=== PATIENT | male | born 1975 ===

== ENCOUNTER 2017-12-30 23:41 | Inpatient (IN) | payer OTHER ==
[2017-12-30 23:42] VITALS: BMI 34.0
--- NOTE | 2017-12-31 01:53 | ED PDOC ---
Arrival/HPI - General Historian: Patient - History of Present Illness Time/Duration: Other (today) Symptom Onset: Gradual Symptom Course: Worsening <Vaishali Esparza - Last Filed: 12/31/17 02:15> <Teofilo Owens - Last Filed: 12/31/17 03:14> <Grupo Styles - Last Filed: 12/31/17 09:51> - General Chief Complaint: Psychiatric Evaluation Time Seen by Provider: 12/31/17 00:41 - History of Present Illness Narrative History of Present Illness (Text): 12/31/17 01:50 42-year-old male with a history of schizophrenia presents today with suicidal ideation. Patient states he is feeling depressed and wants to hurt himself. He denies headache dizziness or weakness no chest pain or shortness of breath. Denies fevers or chills. Denies URI symptoms. Denies abdominal pain. No nausea or vomiting. No other complaints. Patient states he ran out of his medications a few months ago and has not been taking them. (Vaishali Esparza) Past Medical History - Provider Review Nursing Documentation Reviewed: Yes - Travel History Have you recently traveled outside [place] w/in the past 3 mons?: No - Infectious Disease Hx of Infectious Diseases: None - Tetanus Immunization Tetanus Immunization: Unknown - Cardiac Hx Cardiac Disorders: No Hx Hypertension: No - Pulmonary Hx Respiratory Disorders: No Hx Tuberculosis: No - Neurological Hx Neurological Disorder: No HX Cerebrovascular Accident: No Hx Seizures: No - HEENT Hx HEENT Disorder: No - Renal Hx Renal Disorder: No - Endocrine/Metabolic Hx Endocrine Disorders: Yes (DM) Hx Diabetes Mellitus Type 2: Yes - Hematological/Oncological Hx Blood Disorders: No Hx Cancer: No - Integumentary Hx Dermatological Disorder: No - Musculoskeletal/Rheumatological Hx Arthritis: No Hx Fractures: No Hx Osteoporosis: No - Gastrointestinal Hx Gastrointestinal Disorders: No Hx Crohn's Disease: No Hx Diverticulitis: No Hx Gall Bladder Disease: No Hx Pancreatitis: No - Genitourinary/Gynecological Hx Genitourinary Disorders: No Hx Sexually Transmitted Diseases: No - Psychiatric Hx Anxiety: Yes Hx Bipolar Disorder: Yes Hx Depression: Yes Hx Schizophrenia: Yes Hx Substance Use: No - Past Surgical History Past Surgical History: No Previous - Surgical History Hx Appendectomy: Yes Hx Cholecystectomy: No Hx Coronary Stent: No - Anesthesia Hx Anesthesia: Yes Hx Anesthesia Reactions: No Hx Malignant Hyperthermia: No - Suicidal Assessment Feels Threatened In Home Enviroment: No <Vaishali Esparza - Last Filed: 12/31/17 02:15> Family/Social History - Physician Review Nursing Documentation Reviewed: Yes Family/Social History: Unknown Family HX Smoking Status: Heavy Smoker > 10 Cigarettes Daily Hx Alcohol Use: Yes (1-2 etoh in a week) Hx Substance Use: No Hx Substance Use Treatment: No <Vaishali Esparza - Last Filed: 12/31/17 02:15> Allergies/Home Meds <Vaishali Esparza - Last Filed: 12/31/17 02:15> <Teofilo Owens - Last Filed: 12/31/17 03:14> <Grupo Styles - Last Filed: 12/31/17 09:51> Allergies/Adverse Reactions: Allergies divalproex sodium [From Depakote] Allergy (Verified 12/31/17 00:25) RASH seafood Allergy (Uncoded 12/31/17 00:25) RASH Review of Systems - Review of Systems Constitutional: absent: Fatigue, Fevers Respiratory: absent: SOB, Cough Cardiovascular: absent: Chest Pain, Palpitations Gastrointestinal: absent: Abdominal Pain, Nausea, Vomiting Genitourinary Male: absent: Dysuria Musculoskeletal: absent: Arthralgias Skin: absent: Rash, Pruritis Neurological: absent: Headache, Dizziness Psychiatric: Depression, Suicidal Ideation. absent: Anxiety <Vaishali Esparza - Last Filed: 12/31/17 02:15> Physical Exam Vital Signs Reviewed: Yes Temperature: Afebrile Blood Pressure: Normal Pulse: Regular Respiratory Rate: Normal Appearance: Positive for: Well-Appearing, Non-Toxic, Comfortable Pain Distress: None Mental Status: Positive for: Alert and Oriented X 3 - Systems Exam Head: Present: Atraumatic Mouth: Present: Moist Mucous Membranes Neck: Present: Normal Range of Motion Respiratory/Chest: Present: Clear to Auscultation Cardiovascular: Present: Regular Rate and Rhythm Abdomen: No: Tenderness, Distention, Rebound, Guarding Back: Present: Normal Inspection Upper Extremity: Present: Normal ROM Lower Extremity: Present: Normal ROM Neurological: Present: GCS=15, Speech Normal Skin: Present: Warm, Dry Psychiatric: Present: Alert, Oriented x 3, Depressed Mood, Suicidal Ideation <Vaishali Esparza - Last Filed: 12/31/17 02:15> Vital Signs Temp Pulse Resp BP Pulse Ox 12/31/17 07:00 97.9 F 80 16 138/70 99 12/31/17 05:00 97.9 F 85 18 129/69 97 12/31/17 03:00 98.7 F 80 18 130/70 98 12/31/17 01:43 98.6 F 79 15 119/70 98 12/31/17 00:27 98.4 F 97 H 20 127/76 99 12/30/17 23:43 98.5 F 89 15 127/80 99 Medical Decision Making <Vaishali Esparza - Last Filed: 12/31/17 02:15> <Teofilo Owens - Last Filed: 12/31/17 03:14> <Grupo Styles - Last Filed: 12/31/17 09:51> ED Course and Treatment: 12/31/17 01:52 Patient is nontoxic well-appearing in no distress vital signs are stable. CBC WNL CMP glucose 266 Tylenol WNL Salicylate WNL Alcohol level WNL Urine drug screen wnl UA; wnl cxr: wnl ekg sinus rhythm at 93 bpm normal axis, early repolarization. pt without chest pain or shortness of breath. pt is medically cleared for PES evaluation 12/31/17 02:[address] case [address] out to [address] owens pending PES evaluation, re-eval and disposition. (Vaishali Esparza) 12/31/17 02:38: Case endorsed to me by AWILDA Esparza. Pending PES evaluation, will reassess and disposition. 12/31/17 03:14: Patient was evaluated by PES. Dr. Christopher will evaluate patient in the morning. (Teofilo Owens) - Lab Interpretations Lab Results: 12/31/17 00:40 12/31/17 00:40 Lab Results 12/31/17 00:40: Alcohol, Quantitative < 10 12/31/17 00:40: Salicylates < 1 L, Acetaminophen < 10.0 L 12/31/17 00:40: Urine Opiates Screen Negative, Urine Methadone Screen Negative, Ur Barbiturates Screen Negative, Ur Phencyclidine Scrn Negative, Ur Amphetamines Screen Negative, U Benzodiazepines Scrn Negative, U Oth Cocaine Metabols Negative, U Cannabinoids Screen Negative 12/31/17 00:40: Sodium 137, Potassium 3.9, Chloride 101, Carbon Dioxide 24, Anion Gap 16, BUN 10, Creatinine 0.7 L, Est GFR ( Amer) > 60, Est GFR ( Non-Af Amer) > 60, Random Glucose 266 H, Calcium 9.6, Total Bilirubin 0.2, AST 16 L D, ALT 33, Alkaline Phosphatase 88, Total Protein 6.7, Albumin 3.9, Globulin 2.8, Albumin/Globulin Ratio 1.4 12/31/17 00:40: Urine Color Yellow, Urine Appearance Sl cloudy, Urine pH 6.0, Ur Specific [place] 1.025, Urine Protein Negative, Urine Glucose (UA) >=1000, Urine Ketones Negative, Urine Blood Negative, Urine Nitrate Negative, Urine Bilirubin Negative, Urine Urobilinogen 0.2, Ur Leukocyte Esterase Negative 12/31/17 00:40: WBC 6.6, RBC 4.65, Hgb 13.7 L, Hct 40.0 L, MCV 86.0, MCH 29.5, MCHC 34.3, RDW 12.8, Plt Count 226, MPV 10.7, Gran % 43.7 L, Lymph % (Auto) 47.6 H, [place] % (Auto) 6.1 H, Eos % (Auto) 2.4, Baso % (Auto) 0.2, Gran # 2.86, Lymph # (Auto) 3.1, [place] # (Auto) 0.4, Eos # (Auto) 0.2, Baso # (Auto) 0.01 - RAD Interpretation Radiology Orders: 12/31/17 00:41 CHEST PORTABLE [RAD] Stat Disposition/Present on Arrival - Present on Arrival Any Indicators Present on Arrival: No History of DVT/PE: No History of Uncontrolled Diabetes: No Urinary Catheter: No History of Decub. Ulcer: No History Surgical Site Infection Following: None <Vaishali Esparza - Last Filed: 12/31/17 02:15> <Teofilo Owens - Last Filed: 12/31/17 03:14> - Disposition Have Diagnosis and Disposition been Completed?: Yes Disposition Time: 10:00 Patient Plan: Admission <Grupo Styles - Last Filed: 12/31/17 09:51> - Disposition Diagnosis: Schizoaffective disorder Disposition: HOSPITALIZED Condition: STABLE Forms: [employer] (Kinyarwanda)
[2017-12-31 01:58] LABS: BASO # 0.01 K/mm3 (0.0-2.0); BASO % 0.2 % (0.0-3.0); EOS # 0.2 (0.0-0.7); EOS % 2.4 % (1.5-5.0); GRAN # 2.86 (1.4-6.5); GRAN % 43.7 % (50.0-68.0); HEMOGLOBIN 13.7 g/dL (14.0-18.0); LYMPH # 3.1 (1.2-3.4); LYMPH % 47.6 % (22.0-35.0); MEAN CORPUSCULAR HEMOGLOBIN 29.5 pg (25.0-35.0); MEAN CORPUSCULAR HGB CONC 34.3 g/dl (31.0-37.0); MEAN PLATELET VOLUME 10.7 fl (7.0-11.0); MONO # 0.4 (0.1-0.6); MONO % 6.1 % (1.0-6.0); RBC 4.65 10^6/uL (3.5-6.1); RED CELL DISTRIBUTION WIDTH 12.8 % (11.5-14.5); WHITE BLOOD COUNT 6.6 10^3/ul (4.5-11.0)
[2017-12-31 01:59] LABS: URINE BILIRUBIN NEGATIVE (NEGATIVE); URINE BLOOD NEGATIVE (NEGATIVE); URINE GLUCOSE (UA) >=1000 mg/dL (NEGATIVE); URINE LEUKOCYTE ESTERASE NEGATIVE Leu/uL (NEGATIVE); URINE NITRATE NEGATIVE (NEGATIVE); URINE PROTEIN NEGATIVE mg/dL (<30 mg/dL); URINE UROBILINOGEN 0.2 E.U./dL (<1 E.U./dL)
[2017-12-31 02:04] LABS: URINE APPEARANCE SL CLOUDY (CLEAR); URINE COLOR YELLOW (YELLOW)
[2017-12-31 02:07] LABS: ALB/GLOB RATIO 1.4 (1.1-1.8); ALBUMIN 3.9 g/dL (3.0-4.8); ALT/SGPT 33 U/L (7-56); AST/SGOT 16 U/L (17-59); BLOOD UREA NITROGEN 10 mg/dL (7-21); CALCIUM 9.6 mg/dL (8.4-10.5); GFR AFRICAN-AMERICAN > 60; GFR NON-AFRICAN AMERICAN > 60
[2017-12-31 02:08] LABS: ACETAMINOPHEN < 10.0 ug/ml (10.0-20.0); SALICYLATE < 1 mg/dL (2.0-20.0)
[2017-12-31 02:23] LABS: BARBITURATES, UR NEGATIVE (NEGATIVE); BENZODIAZEPINES, UR NEGATIVE (NEGATIVE); OPIATES, UR NEGATIVE (NEGATIVE); PHENCYCLIDINE, UR NEGATIVE (NEGATIVE)
--- NOTE | 2017-12-31 09:40 | RAD ---
HISTORY: pes eval COMPARISON: No prior. FINDINGS: LUNGS: The lungs are well inflated and clear. PLEURA: No significant pleural effusion identified, no pneumothorax apparent. CARDIOVASCULAR: Normal. OSSEOUS STRUCTURES: No significant abnormalities. VISUALIZED UPPER ABDOMEN: Normal. OTHER FINDINGS: None. IMPRESSION: No active pulmonary disease.
--- NOTE | 2017-12-31 10:28 | CARD ---
APPROVED REPORT EKG Measurement Heart [id number] <Conclusion> Normal sinus rhythm ST elevation, consider early repolarization, pericarditis, or injury ST elevations were seen on prior ECG but the pattern is somewhat different now. Suggest clinical correlation.
[2017-12-31 10:42] VITALS: O2SAT 100
[2017-12-31] MEDS ORDERED: DiphenhydrAMINE 50 mg/ml Inj IM PRN (11:52)
[2017-12-31 12:46] VITALS: RESP 20
--- NOTE | 2017-12-31 14:57 | PCM.BM ---
<Yulissa Gallagher - Last Filed: 12/31/17 14:54> Treatment Plan Problems - Problems identified on initial assessmt high risk suicide Date Initiated: 12/31/17 Time Initiated: 14:56 Assessment reference: NA Status: Active ineffective coipng Date Initiated: 12/31/17 Time Initiated: 14:57 Assessment reference: NA Status: Active hopelessness.helplessness Date Initiated: 12/31/17 Time Initiated: 14:58 Assessment reference: NA Status: Active medication nonadherence Date Initiated: 12/31/17 Time Initiated: 14:59 Assessment reference: NA Status: Active self care deficit Date Initiated: 12/31/17 Time Initiated: 15:00 Assessment reference: NA Status: Active altered sleep pattern Date Initiated: 12/31/17 Time Initiated: 15:02 Assessment reference: NA Status: Active Treatment assets and liabiliti Patient Assests: cooperative, self-reliant, ADL independent, physically healthy , negotiates basic needs Patient Liabilities: live alone, poor support system - Milieu Protocol Maintain good personal hygiene: every shift Encourage regular showers, every shift Remind patient to perform daily oral care, every shift Assist patient to perform ADL's Conduct patient checks and document Observation sheet: Q15 minutes Maintain personal safety: every shift Educate patient to report safety concerns to staff, every shift Monitor environment for contraband/sharps Medication safety: Monitor for expected outcome, potential side effects: every shift, Assess barriers to learning: every shift, Assess readiness for medication education: every shift Family Contact - Goals for Treatment Patient goals for treatment: To get back on his medication Discharge/Continuing Care - Education Needs Education Needs: Patient Medication, Patient Diagnosis/Disease Process, Patient Coping Skills, Patient Community resources, Patient Personal Hygiene/Grooming - Discharge Discharge Criteria: Tolerates medication w/o severe side effects, Free of Suicidal thoughts, Normal sleep pattern, Ability to care for self <Isabela Christopher - Last Filed: 12/31/17 16:29> - Diagnosis (1) Schizoaffective disorder Status: Acute Interventions: 12/31/17 16:29 Psychoeducation/psychotherapy Psychopharmacology/adjustment of medications as needed/ monitoring possible side effects Evaluate pt on daily basis Compliance with medications and follow up appointments Long acting medication if pt is noncompliant with pill form Suicide and homicide risk assessment and prevention, coping strategies, safety plan Relapse prevention Reduction of symptoms Improve functional status Possible assertive community treatment Cognitive behavioral therapy Family involvement Possible social skill training as outpatient <Teri Amor - Last Filed: 01/03/18 16:16> Family Contact Family involvement: Patient does not wish Family/SO involvement <Josette Marx - Last Filed: 01/03/18 16:23>
[2017-12-31] MEDS: Insulin Reg-LOW-Coverage SC SCH ×2 (17:37→21:40)
--- NOTE | 2017-12-31 22:09 | CON ---
DATE: HISTORY OF PRESENT ILLNESS: The patient is 42-year-old male with reported history of schizoaffective disorder, bipolar type. Patient has multiple admissions to the psychiatric inpatient unit including [facility]. Patient was discharged from [facility] on 12/25 against medical advice. Patient came back to [place] on 12/27 and was discharged again and patient came here for evaluation of suicidal ideation with a plan to walk into the traffic. As per report, patient was wandering in the community and trying to walk into the traffic. Patient was seen and examined in the emergency room. Patient presented to be disheveled, very poor personal hygiene. Patient reported that he feels depressed, expressed thoughts of killing himself with a plan to walk into the traffic, which is consistent with the history. Patient presented with a flat affect and monotonic speech as well as poverty of speech and thoughts. Patient denied hearing voices, denied seeing things, denied paranoid ideation, but patient appears to be guarded. Patient reported that he has more than five psychiatric admissions. Patient said that medications that helped him in that are haloperidol and Cogentin. PATIENT IS ALLERGIC TO DEPAKOTE. Patient said that he would have seizure-like activity if he will take Depakote. Patient reported that he has very poor support in the community. He has nobody and he is homeless and he does not work, but collects social security disability for mental illness. VITAL SIGNS: Reviewed. Temperature 97.9, blood pressure 138/70, respirations 16, oxygen saturation 99. MEDICATIONS: Reviewed. LABORATORY DATA: Reviewed. Toxicology negative for any substances. Hemoglobin and hematocrit 13.7 and 40 respectively. Chemistry reviewed. Creatinine is 0.7, which is low. Patient also reports that he has diabetes, but he does not take any medication. Patient reported that he is not going to pharmacy and he is noncompliant with medications. MENTAL STATUS EXAM: Patient presented to be sleepy, arousable, but patient was falling asleep during the interview. Personal hygiene is poor. Speech was monotonic, low volume, underproductive, poverty of speech. Mood described, "I am not doing so well." Affect was flat. Thought process concrete. Thought content, patient denied visual, auditory, tactile hallucinations, but patient presented to be guarded and paranoid. Insight and judgment seems to be limited. Impulses are unpredictable. IMPRESSION: As per history, schizoaffective disorder, bipolar type. PLAN: This scientific writer offered patient admission to the psychiatric inpatient unit. Patient accepted that offer. Patient is willing to take Haldol as well as Cogentin. Risks, benefits, and alternative to medications were discussed with the patient. Patient will be seen by medical team for diabetes, low algorithm coverage will be started. Patient contracted for safety. There is no need to be on one-to-one. Patient will be admitted to the psychiatric inpatient unit. Should you have any questions, give me a call back. Thank you very much for letting me participate in the care of your patient. Isabela Christopher MD MTDD
[2018-01-01] MEDS: Insulin Reg-LOW-Coverage SC SCH ×4 (08:30→21:33)
--- NOTE | 2018-01-01 11:35 | PCM.PSYCH ---
Initial Psychiatric Evaluation - Initial Psychiatric Evaluation Type of Admission: Voluntary Chief Complaint (in patient's own words): depressed History of Present Illness and Precipitating Events: Patient is a single 42-year-old -[place] male with a reported history of Schizoaffective disorder bipolar type, r/o Mild MR (per prior records) multiple admissions- most recently discharged AMA from [facility] on December 25, 2017, then presented to [place] on December 27, 2017 where he presented with SI w/o plan and discharged. Patient then came to [facility] ER on complaining of suicidal thoughts with the plan to walk into traffic. Patient was interviewed by Dr. Christopher in the ER yesterday. Her report indicates that he was wandering in the community trying to walk into traffic. Patient reported feeling very depressed due to unemployment, homelessness and poor community support. I reviewed recent notes and met with patient at bedside. He is alert and well- oriented to month year, location and circumstances. Focus is fair and affect is constricted. Patient reports continued depression and endorses symptoms of low motivation, low-energy, poor sleep, hopelessness and helplessness. Presently he denies having any suicidal thoughts and feel safe on the unit. Regarding major stressors, he reports that he has been homeless since 2007 and lives in shelters. Patient is unemployed. He reports that he has also been grieving the of his 27-year-old nephew (also named Preet) who of an asthma attack approximately a year ago. This account was confirmed by reviewing [facility] 02/2017 hospitalization records. Patient denies any perceptual disturbances and does not appear to be responding to internal stimuli though this does appear internally preoccupied. He is tolerating his current medications and denies any side effects or any new discomfort or pain. Thus far he has been in good behavioral control on the unit. PSYCHIATRIC HISTORY Most recently discharged AMA from [facility] on December 23-December 25, 2017. Patient then presented to [place] on December 27, 2017 with SI w/o plan and discharged from the ER. Patient was admitted to [facility] in February 2017 s/p the sudden of his nephew in January 2017 secondary to asthma attack. Patient was discharged on Risperdal 2 mg HS, Zoloft 50 mg daily. SOCIAL HISTORY Patient was born and raised in [place]. He is single. Never been and doesnt have any children. Patient reports that hes been homeless since 2007 and has been living in shelters. Patient reports he graduated high school. He is unemployed and denies any legal issues. He denies any drug or alcohol issues and smokes a few cigarettes every other day. Patient was counseled on the morbidity and mortality risks of continue tobacco use and offered a nicotine patch which he refused stating "I will never quit". Current Medications: Active Medications Generic Name Dose Route Start Last Admin Trade Name Freq PRN Reason Stop Dose Admin Acetaminophen 650 mg 12/31/17 11:53 Tylenol 325mg Tab PO Q6H PRN Pain, moderate (4-7) Benztropine Mesylate 1 mg 12/31/17 13:00 12/31/17 17:38 Cogentin PO 1 mg TID BILL Administration Diphenhydramine HCl 50 mg 12/31/17 11:45 Benadryl PO Q6 PRN Agitation Diphenhydramine HCl 50 mg 12/31/17 11:52 Benadryl IM Q6H PRN Allergy symptoms Fluoxetine HCl 20 mg 12/31/17 11:45 12/31/17 17:43 Prozac PO 20 mg DAILY BLIL Administration Haloperidol 5 mg 12/31/17 13:00 12/31/17 17:38 Haldol PO 5 mg TID BILL Administration Protocol Haloperidol 5 mg 12/31/17 11:43 Haldol PO Q6 PRN Agitation Protocol Insulin Human Regular 0 units 12/31/17 16:30 12/31/17 21:40 Humulin R Low SC Not Given ACHS BILL Protocol Lorazepam 2 mg 12/31/17 11:47 Ativan PO Q6 PRN Anxiety Protocol Lorazepam 2 mg 12/31/17 11:50 Ativan IM Q6H PRN Anxiety Protocol Zolpidem Tartrate 5 mg 12/31/17 11:42 Ambien PO HS PRN Insomnia Protocol Past Psychiatric History - Past Psychiatric History Pertinent Medical Hx (Current Medical&Sleep Prob, Allergies): Allergies Allergy/AdvReac Type Severity Reaction Status Date / Time divalproex sodium Allergy RASH Verified 12/31/17 14:27 [From Depakote] seafood Allergy RASH Uncoded 12/31/17 14:27 No Known Home Med 01/01/18 DSM 5 DX - DSM 5 DSM 5 Diagnosis: Schizoaffective disorder bipolar type r/o Mild MR (per prior records) - Recommended/Plan of Treatment Treatment Recommendations and Plan of Treatment: * group, milieu and supportive tx * Prozac 20 mg po daily for depression * Haldol 5 mg po TID for mood control/agitation, Cogentin 1 mg po TID for EPS prophylaxis * Ambien 5 mg HS prn: insomnia * Awaiting medical consult * Vitals reviewed and noted below: 01/01/18 07:45 Temperature 98.1 F Pulse Rate 72 Respiratory 20 Rate Blood Pressure 110/75 ER LABS AND REPORTS 12/31/17 00:40: Alcohol, Quantitative < 10 12/31/17 00:40: Salicylates < 1 L, Acetaminophen < 10.0 L 12/31/17 00:40: Urine Opiates Screen Negative, Urine Methadone Screen Negative, Ur Barbiturates Screen Negative, Ur Phencyclidine Scrn Negative, Ur Amphetamines Screen Negative, U Benzodiazepines Scrn Negative, U Oth Cocaine Metabols Negative, U Cannabinoids Screen Negative 12/31/17 00:40: Sodium 137, Potassium 3.9, Chloride 101, Carbon Dioxide 24, Anion Gap 16, BUN 10, Creatinine 0.7 L, Est GFR ( Amer) > 60, Est GFR ( Non-Af Amer) > 60, Random Glucose 266 H, Calcium 9.6, Total Bilirubin 0.2, AST 16 L D, ALT 33, Alkaline Phosphatase 88, Total Protein 6.7, Albumin 3.9, Globulin 2.8, Albumin/Globulin Ratio 1.4 12/31/17 00:40: Urine Color Yellow, Urine Appearance Sl cloudy, Urine pH 6.0, Ur Specific [place] 1.025, Urine Protein Negative, Urine Glucose (UA) >=1000, Urine Ketones Negative, Urine Blood Negative, Urine Nitrate Negative, Urine Bilirubin Negative, Urine Urobilinogen 0.2, Ur Leukocyte Esterase Negative 12/31/17 00:40: WBC 6.6, RBC 4.65, Hgb 13.7 L, Hct 40.0 L, MCV 86.0, MCH 29.5, MCHC 34.3, RDW 12.8, Plt Count 226, MPV 10.7, Gran % 43.7 L, Lymph % (Auto) 47.6 H, [place] % (Auto) 6.1 H, Eos % (Auto) 2.4, Baso % (Auto) 0.2, Gran # 2.86, Lymph # (Auto) 3.1, [place] # (Auto) 0.4, Eos # (Auto) 0.2, Baso # (Auto) 0.01 CXR: wnl ekg sinus rhythm at 93 bpm normal axis, early repolarization. pt without chest pain or shortness of breath. - Smoking Cessation Smoking Cessation Initiated: No Reason for not providing: Patient refused
[2018-01-02] MEDS: Insulin Reg-LOW-Coverage SC SCH ×4 (08:04→22:44)
--- NOTE | 2018-01-02 11:41 | PCM.PYCHPN ---
Psychiatric Progress Note - Psychiatric Progress Note Patient seen today, length of contact: 25 min Patient Chief Complaint: better Problems Identified/Issues Discussed: History of Present Illness and Precipitating Events: Patient is a single 42-year-old -[place] male with a reported history of Schizoaffective disorder bipolar type, r/o Mild MR (per prior records) multiple admissions- most recently discharged AMA from [facility] on December 25, 2017, then presented to [facility] on December 27, 2017 where he presented with SI w/o plan and discharged. Patient then came to [facility] on complaining of suicidal thoughts with the plan to walk into traffic. Patient was interviewed by Dr. Christopher in the ER yesterday. Her report indicates that he was wandering in the community trying to walk into traffic. Patient reported feeling very depressed due to unemployment, homelessness and poor community support. I reviewed recent notes and met with patient at bedside. He is alert and well- oriented to month year, location and circumstances. Focus is fair and affect is constricted. Patient reports continued depression and endorses symptoms of low motivation, low-energy, poor sleep, hopelessness and helplessness. Presently he denies having any suicidal thoughts and feel safe on the unit. Regarding major stressors, he reports that he has been homeless since 2007 and lives in shelters. Patient is unemployed. He reports that he has also been grieving the of his 27-year-old nephew (also named Preet) who of an asthma attack approximately a year ago. This account was confirmed by reviewing [facility] 02/2017 hospitalization records. Patient denies any perceptual disturbances and does not appear to be responding to internal stimuli though this does appear internally preoccupied. He is tolerating his current medications and denies any side effects or any new discomfort or pain. Thus far he has been in good behavioral control on the unit. PSYCHIATRIC HISTORY Most recently discharged AMA from [facility] on December 23-December 25, 2017. Patient then presented to [facility] on December 27, 2017 with SI w/o plan and discharged from the ER. Patient was admitted to [facility] in February 2017 s/p the sudden of his nephew in January 2017 secondary to asthma attack. Patient was discharged on Risperdal 2 mg HS, Zoloft 50 mg daily. SOCIAL HISTORY Patient was born and raised in [place]. He is single. Never been and doesnt have any children. Patient reports that hes been homeless since 2007 and has been living in shelters. Patient reports he graduated high school. He is unemployed and denies any legal issues. He denies any drug or alcohol issues and smokes a few cigarettes every other day. Patient was counseled on the morbidity and mortality risks of continue tobacco use and offered a nicotine patch which he refused stating "I will never quit". PROGRESS NOTE I reviewed recent notes and met with patient in the hallway. He is alert and well-oriented to month year, location and circumstances. Presents as pleasant and friendly. Patient put in a 48 hour letter at 1:50 am this morning. He indicates that hes feeling better and just wants to return back to [facility]. Reports that he is tolerating his medications and denies any discomfort or pain. Slept well last night. Patient denies any perceptual disturbances and does not appear to be responding to internal stimuli. Affect is more reactive and he smiles more readily this morning. Thus far he has been in fair behavioral control. He has been intermittently visible and irritable on the unit. Apparently he became annoyed about not getting double portions of food and stated that he would sign out if not given sufficient food. Diagnostic Results: Schizoaffective disorder bipolar type r/o Mild MR (per prior records) Mental Status Examination - Cognitive Function Orientation: Person, Place, Situation Attention: WNL Concentration: WNL - Mood Mood: Depressed (better) - Affect Affect: Constricted (improved reactivity ) - Speech Speech: Appropriate - Formal Thought Process Formal Thought Process: No Impairment - Suicidal Ideation Suicidal Ideation: No - Homicidal Ideation Homicidal Ideation: No Goal/Treatment Plan - Goal/Treatment Plan Progress Toward Problem(s) and Goals/Treatment Plan: * group, milieu and supportive tx * Patient put in a 48 hour letter on 01/02/18 at 1:50 am. Thus far has been stable without evidence of overt disorganization or thoughts to harm self. * Prozac 20 mg po daily for depression * Haldol 5 mg po TID for mood control/agitation, Cogentin 1 mg po TID for EPS prophylaxis * Ambien 5 mg HS prn: insomnia * Awaiting medical consult * Vitals reviewed and noted below: 01/02/18 07:20 Temperature 98.4 F Pulse Rate 90 Respiratory 20 Rate Blood Pressure 103/71 ER LABS AND REPORTS 12/31/17 00:40: Alcohol, Quantitative < 10 12/31/17 00:40: Salicylates < 1 L, Acetaminophen < 10.0 L 12/31/17 00:40: Urine Opiates Screen Negative, Urine Methadone Screen Negative, Ur Barbiturates Screen Negative, Ur Phencyclidine Scrn Negative, Ur Amphetamines Screen Negative, U Benzodiazepines Scrn Negative, U Oth Cocaine Metabols Negative, U Cannabinoids Screen Negative 12/31/17 00:40: Sodium 137, Potassium 3.9, Chloride 101, Carbon Dioxide 24, Anion Gap 16, BUN 10, Creatinine 0.7 L, Est GFR ( Amer) > 60, Est GFR ( Non-Af Amer) > 60, Random Glucose 266 H, Calcium 9.6, Total Bilirubin 0.2, AST 16 L D, ALT 33, Alkaline Phosphatase 88, Total Protein 6.7, Albumin 3.9, Globulin 2.8, Albumin/Globulin Ratio 1.4 12/31/17 00:40: Urine Color Yellow, Urine Appearance Sl cloudy, Urine pH 6.0, Ur Specific Alice 1.025, Urine Protein Negative, Urine Glucose (UA) >=1000, Urine Ketones Negative, Urine Blood Negative, Urine Nitrate Negative, Urine Bilirubin Negative, Urine Urobilinogen 0.2, Ur Leukocyte Esterase Negative 12/31/17 00:40: WBC 6.6, RBC 4.65, Hgb 13.7 L, Hct 40.0 L, MCV 86.0, MCH 29.5, MCHC 34.3, RDW 12.8, Plt Count 226, MPV 10.7, Gran % 43.7 L, Lymph % (Auto) 47.6 H, [place] % (Auto) 6.1 H, Eos % (Auto) 2.4, Baso % (Auto) 0.2, Gran # 2.86, Lymph # (Auto) 3.1, [place] # (Auto) 0.4, Eos # (Auto) 0.2, Baso # (Auto) 0.01 CXR: wnl ekg sinus rhythm at 93 bpm normal axis, early repolarization. pt without chest pain or shortness of breath.
[2018-01-03] MEDS: Insulin Reg-LOW-Coverage SC SCH ×4 (08:03→22:10)
--- NOTE | 2018-01-03 10:02 | CON ---
DATE: 12/31/2017 CHIEF COMPLAINT: Diabetes mellitus. HISTORY OF PRESENT ILLNESS: Mr. Tomasz Green, a 42-year-old male with history of schizophrenia, came to the Emergency Room with suicidal ideation. The patient states that he is feeling depressed and he wanted to hurt himself. He denies headache, dizziness, weakness, chest pain or shortness of breath. No fever. No chills. No nausea, vomiting or diarrhea. No hematuria, no hematochezia. No swelling of the legs. The patient stated he ran out of his medication a few months ago and has not been taking them. PAST MEDICAL HISTORY: Diabetes mellitus type 2, anxiety, depression, schizophrenia, appendectomy. FAMILY HISTORY: Father and mother, noncontributory. HABITS: Smoking, heavy smoker more than 10 cigarettes a day. Alcohol denied ALLERGIES: DEPAKOTE, SEAFOOD. REVIEW OF SYSTEMS: The patient was seen and examined on the bedside, sleepy, arousable, feeling depressed. Otherwise, no fatigue, no fever, no shortness of breath, no coughing, no chest pain, no palpitation, no abdominal pain. No nausea, vomiting, or diarrhea. No dysuria, no dysarthria. No rash, pruritus, headache or dizziness but having suicidal ideation. PHYSICAL EXAMINATION VITAL SIGNS: Temperature 97.9, pulse 80, respiratory rate 16. blood pressure 130/70, and pulse oximetry 99. HEENT: Head is normocephalic, atraumatic. Eyes PERRLA. Extraocular muscles are intact. Conjunctivae clear. Nose is patent. Mucous membrane moist. NECK: Supple. No carotid bruit. No JVD or thyromegaly. CHEST: Bilaterally symmetrical. HEART: S1 and S2 positive. LUNGS: Clear to auscultation. ABDOMEN: Soft. Bowel sounds present. No organomegaly. EXTREMITIES: No edema. No cyanosis. NEUROLOGIC: Patient is awake and alert. Moving all four extremities. No focal deficits. LABORATORY DATA: White blood cell is 6.6, hemoglobin 13.7, hematocrit 40.0 and platelets 226,000. Sodium 137, potassium 3.9, BUN 10, creatinine 0.7 and glucose 266. ASSESSMENT AND PLAN: Mr. Tomasz Green Jr., 42-year-old male with anemia, hyperglycemia, has schizoaffective disorder, admitted for suicidal ideation, depression, anxiety. Discussion done with Dr. Isabela Christopher, put the patient on sliding scale with repeat labs. Discussion done with the patient also. Urged to quit smoking. Urged to quit drinking. Gastrointestinal and deep venous thrombosis prophylaxis. We will follow. Fabiola Cross MD MTDCharlie
--- NOTE | 2018-01-03 11:24 | CP.PCM.CON ---
<Jak Lynn - Last Filed: 01/03/18 11:17> History of Present Illness - History of Present Illness History of Present Illness: IM Consult Note for Hospitalist Service Consulted for medical management This is a 42 yo AA M with PMH of Non-insulin dependant diabetes, prior appendectomy, and schizophrenia who presented to [facility] with depression/suicidal ideation. As per ED note, patient had reported being off his psych medications for months due to running out and not being able to afford more. Patient is noted to be homeless, but collecting social security disability. Today, patient ambulating around psych unit without issue. No acute complaints when seen and examined in his room. Denies chest pain, shortness of breath, nausea, emesis, dysuria, hematuria, constipation, diarrhea, focal weakness, or syncope/ near-syncope. Denies current SI, HI, auditory or visual hallucinations. Reports previously controlled on Metformin 1000mg BID for his diabetes, never on insulin, and does not want to be on insulin. As per Psych staff, he has been refusing his sliding scale insulin coverage. Blood glucose range for last 24 hours is 172-215. Denies polyuria, polydipsia, persistent thirst, or generalized malaise/weakness. All other ROS in 12-system review are negative. PMH: as above PSH: appendectomy FHx: DM in both parents SHx: admits 1/4 ppd cigarettes since age 21 (~5-6 pack years), inconsistent EtOH but never binging or daily, denies illicits/IVDA PMD: None Review of Systems - Review of Systems All systems: reviewed and no additional remarkable complaints except (as per HPI ) Past Patient History - Infectious Disease Hx of Infectious Diseases: None - Tetanus Immunizations Tetanus Immunization: Unknown - Past Social History Smoking Status: Heavy Smoker > 10 Cigarettes Daily - CARDIAC Hx Cardiac Disorders: No Hx Hypertension: No - PULMONARY Hx Respiratory Disorders: No Hx Tuberculosis: No - NEUROLOGICAL Hx Neurological Disorder: No HX Cerebrovascular Accident: No Hx Seizures: No - HEENT Hx HEENT Problems: No - RENAL Hx Chronic Kidney Disease: No - ENDOCRINE/METABOLIC Hx Endocrine Disorders: Yes (DM) Hx Diabetes Mellitus Type 2: Yes - HEMATOLOGICAL/ONCOLOGICAL Hx Blood Disorders: No Hx Cancer: No - INTEGUMENTARY Hx Dermatological Problems: No - MUSCULOSKELETAL/RHEUMATOLOGICAL Hx Arthritis: No Hx Fractures: No Hx Osteoporosis: No - GASTROINTESTINAL Hx Gastrointestinal Disorders: No Hx Crohn's Disease: No Hx Diverticulitis: No Hx Gall Bladder Disease: No Hx Pancreatitis: No - GENITOURINARY/GYNECOLOGICAL Hx Genitourinary Disorders: No Hx Sexually Transmitted Disorders: No - PSYCHIATRIC Hx Substance Use: No - SURGICAL HISTORY Hx Appendectomy: Yes Hx Cholecystectomy: No Hx Coronary Stent: No - ANESTHESIA Hx Anesthesia: Yes Hx Anesthesia Reactions: No Hx Malignant Hyperthermia: No Meds Allergies/Adverse Reactions: Allergies Allergy/AdvReac Type Severity Reaction Status Date / Time divalproex sodium Allergy RASH Verified 12/31/17 14:27 [From Depakote] seafood Allergy RASH Uncoded 12/31/17 14:27 - Medications Medications: Current Medications Acetaminophen (Tylenol 325mg Tab) 650 mg PO Q6H PRN PRN Reason: Pain, moderate (4-7) Benztropine Mesylate (Cogentin) 1 mg PO TID [facility] Last Admin: 01/03/18 08:03 Dose: 1 mg Diphenhydramine HCl (Benadryl) 50 mg PO Q6 PRN PRN Reason: Agitation Diphenhydramine HCl (Benadryl) 50 mg IM Q6H PRN PRN Reason: Allergy symptoms Fluoxetine HCl (Prozac) 20 mg PO DAILY [facility] Last Admin: 01/03/18 08:04 Dose: 20 mg Haloperidol (Haldol) 5 mg PO TID [facility] PRN Reason: Protocol Last Admin: 01/03/18 08:03 Dose: 5 mg Haloperidol (Haldol) 5 mg PO Q6 PRN; Protocol PRN Reason: Agitation Insulin Human Regular (Humulin R Low) 0 units SC [facility] PRN Reason: Protocol Last Admin: 01/03/18 08:03 Dose: 1 units Lorazepam (Ativan) 2 mg PO Q6 PRN; Protocol PRN Reason: Anxiety Lorazepam (Ativan) 2 mg IM Q6H PRN; Protocol PRN Reason: Anxiety Metformin HCl (Glucophage) 1,000 mg PO BID [facility] Zolpidem Tartrate (Ambien) 5 mg PO HS PRN; Protocol PRN Reason: Insomnia Last Admin: 01/01/18 21:42 Dose: 5 mg Physical Exam - Constitutional Appears: Non-toxic, No Acute Distress Additional comments: In constant state of motion during exam, fidgiting or swaying in place, unable to stand still - Head Exam Head Exam: ATRAUMATIC, NORMAL INSPECTION, NORMOCEPHALIC - Eye Exam Eye Exam: EOMI, Normal appearance. absent: Conjunctival injection, Scleral icterus Pupil Exam: absent: Irregular, Unequal - ENT Exam ENT Exam: Mucous Membranes Moist - Neck Exam Neck exam: Positive for: Full Rom - Respiratory Exam Respiratory Exam: Clear to Auscultation Bilateral, NORMAL BREATHING PATTERN. absent: Accessory Muscle Use, Chest Wall Tenderness, Decreased Breath Sounds, Rales, Rhonchi, Wheezes - Cardiovascular Exam Cardiovascular Exam: REGULAR RHYTHM, RRR, +S1, +S2. absent: Bradycardia, Tachycardia, Irregular Rhythm, JVD, +S4 - GI/Abdominal Exam GI & Abdominal Exam: Normal Bowel Sounds, Soft. absent: Tenderness - Extremities Exam Extremities exam: Positive for: normal inspection, pedal pulses present. Negative for: calf tenderness, pedal edema - Neurological Exam Additional comments: awake and alert, ambulating the fuentes without issue, no gross motor deficits noted, motor appears equal bilaterally, gait normal swaying in place or moving arms constantly, but appears to be psych in nature as not evident when ambulating or distracted acutely - Psychiatric Exam Psychiatric exam: Flat Affect, Normal Mood - Skin Skin Exam: Dry, Intact, Normal Color, Warm Results - Vital Signs Recent Vital Signs: Last Vital Signs Temp 97.3 F L 01/03/18 07:13 Pulse 75 01/03/18 07:13 Resp 20 01/03/18 07:13 BP 124/79 01/03/18 07:13 Pulse Ox 100 12/31/17 10:00 - Labs Result Diagrams: 12/31/17 00:40 12/31/17 00:40 Labs: Laboratory Results - last 24 hr 01/02/18 01/02/18 01/03/18 16:26 21:15 07:21 POC Glucose (mg/dL) 172 H 202 H 185 H 01/03/18 11:08 POC Glucose (mg/dL) 393 H Assessment & Plan - Assessment and Plan (Free Text) Assessment: This is a 42 yo AA M with PMH of Non-insulin dependant diabetes, prior appendectomy, and schizophrenia who presented to [facility] with depression/suicidal ideation. We have been consulted for medical management. Plan: 1) Schizophrenia with medication non-compliance, SI -defer to psych for management 2) DM-II, non-insulin dependant -counseled patient on purpose of sliding scale insulin, encouraged to allow staff to give, appears amenable now -Last A1c 11% on 03/01/17, but sugars in Psych unit despite no insulin coverage range from 170's-230s, so likely less now (if consistent with blood sugars as outpt) -restarting Metformin 1000mg BID, will monitor -would avoid using regular insulin as patient refusing, known to be homeless and med non-compliant -switched diet to heart-healthy consistent carb Dispo: Psych inpt, pending improved glycemic control FEN: heart-healthy consistent carb Access: N/a Consults: IM for medical management (Psych is primary) Ppx: Ambulation for DVT Patient seen, reviewed, and discussed with attending, Dr. Davidson At this time, patient is medically clear, will sign off. Please reconsult as needed. <Kamron Davidson - Last Filed: 01/03/18 14:14> Meds - Medications Medications: Current Medications Acetaminophen (Tylenol 325mg Tab) 650 mg PO Q6H PRN PRN Reason: Pain, moderate (4-7) Benztropine Mesylate (Cogentin) 1 mg PO TID [facility] Last Admin: 01/03/18 08:03 Dose: 1 mg Diphenhydramine HCl (Benadryl) 50 mg PO Q6 PRN PRN Reason: Agitation Diphenhydramine HCl (Benadryl) 50 mg IM Q6H PRN PRN Reason: Allergy symptoms Fluoxetine HCl (Prozac) 20 mg PO DAILY [facility] Last Admin: 01/03/18 08:04 Dose: 20 mg Haloperidol (Haldol) 5 mg PO TID [facility] PRN Reason: Protocol Last Admin: 01/03/18 08:03 Dose: 5 mg Haloperidol (Haldol) 5 mg PO Q6 PRN; Protocol PRN Reason: Agitation Insulin Human Regular (Humulin R Low) 0 units SC [facility] PRN Reason: Protocol Last Admin: 01/03/18 13:10 Dose: 8 units Lorazepam (Ativan) 2 mg PO Q6 PRN; Protocol PRN Reason: Anxiety Lorazepam (Ativan) 2 mg IM Q6H PRN; Protocol PRN Reason: Anxiety Metformin HCl (Glucophage) 1,000 mg PO BID [facility] Zolpidem Tartrate (Ambien) 5 mg PO HS PRN; Protocol PRN Reason: Insomnia Last Admin: 01/01/18 21:42 Dose: 5 mg Results - Vital Signs Recent Vital Signs: Last Vital Signs Temp 97.3 F L 01/03/18 07:13 Pulse 75 01/03/18 07:13 Resp 20 01/03/18 07:13 BP 124/79 01/03/18 07:13 Pulse Ox 100 12/31/17 10:00 - Labs Result Diagrams: 12/31/17 00:40 12/31/17 00:40 Labs: Laboratory Results - last 24 hr 01/02/18 01/02/18 01/03/18 16:26 21:15 07:21 POC Glucose (mg/dL) 172 H 202 H 185 H 01/03/18 11:08 POC Glucose (mg/dL) 393 H Attending/Attestation - Attestation I have personally seen and examined this patient.: Yes I have fully participated in the care of the patient.: Yes I have reviewed all pertinent clinical information: Yes Notes (Text): 01/03/18 14:10 42 year old male with past medical history of diabetes and ?schizoaffective disorder who presented with depressed mood and suicidal ideation. Continue with management as per psychiatrist. This is a 42 yo AA M with PMH of Non-insulin dependant diabetes, prior appendectomy, and schizophrenia who presented to [facility] with depression/suicidal ideation. We have been consulted for medical management. He is currently on prozac. Will resume metformin for history of diabetes. Continue with insulins ss. Counselled on medication and diet compliance. Labs and chart was reviewed. Thank you Dr. Christopher for allowing us to participate in the care of this patient. Please re-consult as needed. Kamron Davidson MD Hospitalist.
--- NOTE | 2018-01-03 16:59 | PCM.PYCHPN ---
Psychiatric Progress Note - Psychiatric Progress Note Patient seen today, length of contact: 25 min Patient Chief Complaint: "I want to go, I don't want to stay here". Problems Identified/Issues Discussed: Suicide/ homicide prevention, past psychiatric h/o, current psychiatric symptoms , medical problems, risk/benefits and alternatives of medications, medications compliance, coping strategies, substance abuse h/o, relapse prevention, importance of follow up with psychiatrist and therapist, discharge plan. Medical Problems: pt has diabetes consult appreciated pt was started on metformin please see note for more detailed information Diagnostic Results: 12/31/17 00:40 12/31/17 00:40 Lab Results 01/03/18 15:51: POC Glucose (mg/dL) 293 H 01/03/18 11:08: POC Glucose (mg/dL) 393 H 01/03/18 07:21: POC Glucose (mg/dL) 185 H 01/02/18 21:15: POC Glucose (mg/dL) 202 H 01/02/18 16:26: POC Glucose (mg/dL) 172 H 01/02/18 11:09: POC Glucose (mg/dL) 191 H 01/02/18 07:40: POC Glucose (mg/dL) 215 H 01/01/18 21:15: POC Glucose (mg/dL) 272 H 01/01/18 16:23: POC Glucose (mg/dL) 251 H 01/01/18 11:49: POC Glucose (mg/dL) 233 H 01/01/18 07:37: POC Glucose (mg/dL) 184 H 12/31/17 21:12: POC Glucose (mg/dL) 234 H 12/31/17 16:15: POC Glucose (mg/dL) 155 H 12/31/17 00:40: Alcohol, Quantitative < 10 12/31/17 00:40: Salicylates < 1 L, Acetaminophen < 10.0 L 12/31/17 00:40: Urine Opiates Screen Negative, Urine Methadone Screen Negative, Ur Barbiturates Screen Negative, Ur Phencyclidine Scrn Negative, Ur Amphetamines Screen Negative, U Benzodiazepines Scrn Negative, U Oth Cocaine Metabols Negative, U Cannabinoids Screen Negative 12/31/17 00:40: Sodium 137, Potassium 3.9, Chloride 101, Carbon Dioxide 24, Anion Gap 16, BUN 10, Creatinine 0.7 L, Est GFR ( Amer) > 60, Est GFR ( Non-Af Amer) > 60, Random Glucose 266 H, Calcium 9.6, Total Bilirubin 0.2, AST 16 L D, ALT 33, Alkaline Phosphatase 88, Total Protein 6.7, Albumin 3.9, Globulin 2.8, Albumin/Globulin Ratio 1.4 12/31/17 00:40: Urine Color Yellow, Urine Appearance Sl cloudy, Urine pH 6.0, Ur Specific [place] 1.025, Urine Protein Negative, Urine Glucose (UA) >=1000, Urine Ketones Negative, Urine Blood Negative, Urine Nitrate Negative, Urine Bilirubin Negative, Urine Urobilinogen 0.2, Ur Leukocyte Esterase Negative 12/31/17 00:40: WBC 6.6, RBC 4.65, Hgb 13.7 L, Hct 40.0 L, MCV 86.0, MCH 29.5, MCHC 34.3, RDW 12.8, Plt Count 226, MPV 10.7, Gran % 43.7 L, Lymph % (Auto) 47.6 H, [place] % (Auto) 6.1 H, Eos % (Auto) 2.4, Baso % (Auto) 0.2, Gran # 2.86, Lymph # (Auto) 3.1, [place] # (Auto) 0.4, Eos # (Auto) 0.2, Baso # (Auto) 0.01 Vital Signs Temp Pulse Pulse Resp BP Pulse Ox 01/03/18 07:13 97.3 F L 75 20 124/79 01/02/18 16:30 81 121/73 01/02/18 07:20 98.4 F 90 20 103/71 01/01/18 16:00 70 116/65 01/01/18 07:45 98.1 F 72 20 110/75 12/31/17 21:17 91 H 103/67 12/31/17 12:04 91 H 20 12/31/17 10:00 98 F 81 18 126/86 100 12/31/17 07:00 97.9 F 80 16 138/70 99 12/31/17 05:00 97.9 F 85 18 129/69 97 12/31/17 03:00 98.7 F 80 18 130/70 98 12/31/17 01:43 98.6 F 79 15 119/70 98 12/31/17 00:27 98.4 F 97 H 20 127/76 99 12/30/17 23:43 98.5 F 89 15 127/80 99 DSM 5 Symptoms Update: as per assessment: Patient is a single 42-year-old -[place] male with a reported history of Schizoaffective disorder bipolar type, r/o Mild MR (per prior records) multiple admissions- most recently discharged AMA from [facility] on December 25, 2017, then presented to [place] on December 27, 2017 where he presented with SI w/o plan and discharged. Patient then came to [facility] ER on complaining of suicidal thoughts with the plan to walk into traffic. Patient was interviewed by Dr. Christopher in the ER yesterday. Her report indicates that he was wandering in the community trying to walk into traffic. Patient reported feeling very depressed due to unemployment, homelessness and poor community support. patient was seen today at the treatment team meeting, patient presented with improved personal hygiene, remember this casualty underwriter from the emergency room, overall was pleasant and corporative. Over the weekend pt submitted 48 hour notice requesting discharge, during treatment team meeting pt rescinded it. pt said that he was feeling depressed and hopeless, but now pt wants to be referred to boarding home and feels more optimistic. Patient denies any perceptual disturbances, but pt is guarded, seems to be on edge, irritable. patient tolerated medications well, no side effects observed or reported, no EPS , AIMS 0. Impression: DSM5 Schizoaffective disorder bipolar type r/o Mild MR (per prior records) Medication Change: Yes (haldol and cogentin increased) Medical Record Reviewed: Yes Consults ordered or reviewed: medical consult appreciated Mental Status Examination - Cognitive Function Orientation: Person, Place, Situation Memory: Impaired (chronic) Attention: Poor Concentration: Poor Association: Loose Fund of Knowledge: Poor (baseline) - Mood Mood: Depressed (better) - Affect Affect: Constricted (improved reactivity ) - Speech Speech: Appropriate - Formal Thought Process Formal Thought Process: Other (pt was guarded and irritable) - Suicidal Ideation Suicidal Ideation: No - Homicidal Ideation Homicidal Ideation: No Goal/Treatment Plan - Goal/Treatment Plan Need for Continued Stay: Remain at risks for inpatient hospitalization, Severe depression anxiety, Discharge may exacerbated symptoms, Failed transitioning, Severe functional impairment Progress Toward Problem(s) and Goals/Treatment Plan: Milieu/structure/supportive therapy Medical consult appreciated, see medical team note for more detailed info SW consultation for discharge plan and social issues, possible referral [facility] Med management Haldol will be increased to 10 mg twice a day for psychotic symptoms Cogentin will be increased to 2 mg twice a day for possible EPS Prozac 20mg po daily was resumed for depression and anxiety ambien 5mg po for insomnia Family involvement Follow up on labs Will monitor closely Pt was educated about risk/benefits and alternatives of medications, coping strategies (safety plan, suicide prevention), relapse prevention, importance of follow up with psychiatrist and therapist, stay away from drugs/alcohol/smoking Estimated Date of D/C: 01/11/18
[2018-01-04 07:24] VITALS: BP 117/86; PULSE 101; TEMP 97.9
[2018-01-04] MEDS: Insulin Reg-LOW-Coverage SC SCH (08:27)
--- NOTE | 2018-01-04 17:04 | PCM.PYCHDC ---
Mental Status Examination - Mental Status Examination Orientation: Person, Place, Situation, Time Memory: Intact Mood: Neutral Affect: Constricted Attention: Poor (baseline) Concentration: Poor (baseline) Association: WNL Fund of Knowledge: Poor (baseline) Formal Thought Process: No Impairment Description of patient's judgement and insight: Pt has improved insight into mental and medical illness, pt was compliant with medications and unit rules and regulations, pt was going to groups, was calm, cooperative, socially appropriate, no behavioral incidents, no agitation, no aggression. Psychotic Thoughts and Behaviors: Pt denied v/a/t hallucinations, denied paranoid ideations, pt does not appear to be psychotic, and thought process is goal directed. Suicidal Ideation: No Current Homicidal Ideation?: No Plan: pt adamantly denied thoughts of harming self or others denied intent or plan. Discharge Summary - Discharge Note Reason for Hospitalization: disorganized thoughts, disorganized behavior, possible suicidal ideation, please see consultation note in the emergency room for more detailed information Psychiatric History (includes Medical, Family, Personal Hx): long history of mental illness, multiple psychiatric admissions. Laboratory Data: Abnormal Lab Results 01/03/18 01/04/18 01/04/18 22:04 07:26 11:04 POC Glucose (mg/dL) 164 H 167 H 204 H 12/31/17 00:40 12/31/17 00:40 Lab Results 01/04/18 11:04: POC Glucose (mg/dL) 204 H 01/04/18 07:26: POC Glucose (mg/dL) 167 H 01/03/18 22:04: POC Glucose (mg/dL) 164 H 01/03/18 15:51: POC Glucose (mg/dL) 293 H 01/03/18 11:08: POC Glucose (mg/dL) 393 H 01/03/18 07:21: POC Glucose (mg/dL) 185 H 01/02/18 21:15: POC Glucose (mg/dL) 202 H 01/02/18 16:26: POC Glucose (mg/dL) 172 H 01/02/18 11:09: POC Glucose (mg/dL) 191 H 01/02/18 07:40: POC Glucose (mg/dL) 215 H 01/01/18 21:15: POC Glucose (mg/dL) 272 H 01/01/18 16:23: POC Glucose (mg/dL) 251 H 01/01/18 11:49: POC Glucose (mg/dL) 233 H 01/01/18 07:37: POC Glucose (mg/dL) 184 H 12/31/17 21:12: POC Glucose (mg/dL) 234 H 12/31/17 16:15: POC Glucose (mg/dL) 155 H 12/31/17 00:40: Alcohol, Quantitative < 10 12/31/17 00:40: Salicylates < 1 L, Acetaminophen < 10.0 L 12/31/17 00:40: Urine Opiates Screen Negative, Urine Methadone Screen Negative, Ur Barbiturates Screen Negative, Ur Phencyclidine Scrn Negative, Ur Amphetamines Screen Negative, U Benzodiazepines Scrn Negative, U Oth Cocaine Metabols Negative, U Cannabinoids Screen Negative 12/31/17 00:40: Sodium 137, Potassium 3.9, Chloride 101, Carbon Dioxide 24, Anion Gap 16, BUN 10, Creatinine 0.7 L, Est GFR ( Amer) > 60, Est GFR ( Non-Af Amer) > 60, Random Glucose 266 H, Calcium 9.6, Total Bilirubin 0.2, AST 16 L D, ALT 33, Alkaline Phosphatase 88, Total Protein 6.7, Albumin 3.9, Globulin 2.8, Albumin/Globulin Ratio 1.4 12/31/17 00:40: Urine Color Yellow, Urine Appearance Sl cloudy, Urine pH 6.0, Ur Specific [place] 1.025, Urine Protein Negative, Urine Glucose (UA) >=1000, Urine Ketones Negative, Urine Blood Negative, Urine Nitrate Negative, Urine Bilirubin Negative, Urine Urobilinogen 0.2, Ur Leukocyte Esterase Negative 12/31/17 00:40: WBC 6.6, RBC 4.65, Hgb 13.7 L, Hct 40.0 L, MCV 86.0, MCH 29.5, MCHC 34.3, RDW 12.8, Plt Count 226, MPV 10.7, Gran % 43.7 L, Lymph % (Auto) 47.6 H, [place] % (Auto) 6.1 H, Eos % (Auto) 2.4, Baso % (Auto) 0.2, Gran # 2.86, Lymph # (Auto) 3.1, [place] # (Auto) 0.4, Eos # (Auto) 0.2, Baso # (Auto) 0.01 Vital Signs Temp Pulse Pulse Resp BP Pulse Ox 01/04/18 07:23 97.9 F 101 H 20 117/86 01/03/18 16:54 70 120/69 01/03/18 07:13 97.3 F L 75 20 124/79 01/02/18 16:30 81 121/73 01/02/18 07:20 98.4 F 90 20 103/71 01/01/18 16:00 70 116/65 01/01/18 07:45 98.1 F 72 20 110/75 12/31/17 21:17 91 H 103/67 12/31/17 12:04 91 H 20 12/31/17 10:00 98 F 81 18 126/86 100 12/31/17 07:00 97.9 F 80 16 138/70 99 12/31/17 05:00 97.9 F 85 18 129/69 97 12/31/17 03:00 98.7 F 80 18 130/70 98 12/31/17 01:43 98.6 F 79 15 119/70 98 12/31/17 00:27 98.4 F 97 H 20 127/76 99 12/30/17 23:43 98.5 F 89 15 127/80 99 Consultations:: List each consultation separately and include: 1. Reason for request. 2. Findings. 3. Follow-up Consultations: medical consult appreciated please see notes for more detailed information Summary of Hospital Course include:: 1. Description of specific treatment plan utilized for patients during their course of treatmen. 2. Summarize the time- course for resolution of acute symptoms and/or regressed behaviors. 3. Describe issues identified and worked on during hospitalization. 4. Describe medication utilized. 5. Describe medical problems identified and treated. 6. Reassessment of suicide risk Summary of Hospital Course: Patient is a single 42-year-old -[place]er male with a reported history of Schizoaffective disorder bipolar type, r/o Mild MR (per prior records) multiple admissions- most recently discharged AMA from [facility] on December 25, 2017, then presented to [place] on December 27, 2017 where he presented with SI w/o plan and discharged. Patient then came to [facility] ER on complaining of suicidal thoughts with the plan to walk into traffic. Patient was interviewed by Dr. Christopher in the ER yesterday. Her report indicates that he was wandering in the community trying to walk into traffic. Patient reported feeling very depressed due to unemployment, homelessness and poor community support. at time of admission patient presented to be depressed and endorses symptoms of low motivation, low-energy, poor sleep, hopelessness and helplessness. Presently he denies having any suicidal thoughts and feel safe on the unit. Regarding major stressors, he reports that he has been homeless since 2007 and lives in shelters. Patient is unemployed. He reports that he has also been grieving the of his 27-year-old nephew (also named Preet) who of an asthma attack approximately a year ago. This account was confirmed by reviewing [facility] 02/2017 hospitalization records. Patient denies any perceptual disturbances and does not appear to be responding to internal stimuli though this does appear internally preoccupied. He is tolerating his current medications and denies any side effects or any new discomfort or pain. Thus far he has been in good behavioral control on the unit. PSYCHIATRIC HISTORY Most recently discharged AMA from [facility] on December 23-December 25, 2017. Patient then presented to [place] on December 27, 2017 with SI w/o plan and discharged from the ER. Patient was admitted to [facility] in February 2017 s/p the sudden of his nephew in January 2017 secondary to asthma attack. Patient was discharged on Risperdal 2 mg HS, Zoloft 50 mg daily. SOCIAL HISTORY Patient was born and raised in [place]. He is single. Never been and doesnt have any children. Patient reports that hes been homeless since 2007 and has been living in shelters. Patient reports he graduated high school. He is unemployed and denies any legal issues. He denies any drug or alcohol issues and smokes a few cigarettes every other day. Patient was counseled on the morbidity and mortality risks of continue tobacco use and offered a nicotine patch which he refused stating "I will never quit". patient was stabilized on the following medications: Haldol 10 mg twice a day for psychotic symptoms Cogentin 2 mg twice a day for possible EPS Prozac 20mg po daily was resumed for depression and anxiety ambien 5mg po for insomnia patient tolerated medications well, no side effects observed or reported. Patient signed 48 hour notice twice, patient requested to be discharged today, patient denied thoughts of harming himself or others, presented much better to compare with the time of admission, patient was found to be not in any imminent danger to self or others can be discharged today. patient interested to take medications, patient reported he did not get any prescriptions from the [facility]. At the time of the discharge pt denied been depressed, denied thoughts of harming self or others, denied psychotic symptoms, and pt does not appeared to be psychotic, denied been anxious, pt is not in imminent danger to self or others, will be following up at [facility] program, this assembly instructions writer offered boarding home referral but pt declined that offer, information about follow up appointment, time and address provided to the pt, it is patient responsibility to follow up with outpatient clinic, PMD as well as specialists (see SW note for more detailed information). In case pt will need to obtain results of studies pending at discharge pt was provided with contact information of Psychiatric Inpatient unit [phone] as well as Medical Record Department [phone]. pt denies smoking or using drugs. pt was provided with prescriptions for all of medications (please see medication reconciliation form) Pt was educated about safety plan in case of worsening of symptoms or in case of suicidal or homicidal ideation call 911 or go to the nearest ER, also was educated to take meds as prescribed and stay away from drugs, pt verbalized understanding. - Diagnosis (1) Schizoaffective disorder Status: Acute - Final Diagnosis (DSM 5) Condition upon Discharge: STABLE Disposition: HOME/ ROUTINE Follow-up Treatment Plan: At the time of the discharge pt denied been depressed, denied thoughts of harming self or others, denied psychotic symptoms, and pt does not appeared to be psychotic, denied been anxious, pt is not in imminent danger to self or others, will be following up at ., information about follow up appointment, time and address provided to the pt, it is patient responsibility to follow up with outpatient clinic, PMD as well as specialists (see SW note for more detailed information). In case pt will need to obtain results of studies pending at discharge pt was provided with contact information of Psychiatric Inpatient unit [phone] as well as Medical Record Department [phone]. pt denied smoking or using drugs pt was provided with prescriptions for all of medications (please see medication reconciliation form) Pt was educated about safety plan in case of worsening of symptoms or in case of suicidal or homicidal ideation call 911 or go to the nearest ER, also was educated to take meds as prescribed and stay away from drugs, pt verbalized understanding. Prescriptions/Medication Reconciliation: Benztropine [Benztropine Mesylate] 2 mg PO AMHS #30 tab FLUoxetine [Prozac] 20 mg PO DAILY #14 cap Haloperidol [Haldol] 10 mg PO AMHS #30 tab MetFORMIN [glucoPHAGE] 1,000 mg PO BID #14 tab - Smoking Cessation Smoking Cessation Medication prescribed: No Reason for not providing: denies using drugs or smoking - Antipsychotic Medications Pt discharged on 2 or more routine antipsychotic medications: No
== END 2018-01-04 13:07 | disposition home or self-care (01) | DRG 885 ==
LOC: ED 23:41 → ERH 12-31 09:48 → PSYC 12-31 11:08
PROVIDERS: ADMIT Psychiatry & Neurology Psychiatry; ATTEND Psychiatry & Neurology Psychiatry
DX: F25.0 Schizoaffective disorder, bipolar type (principal); E11.65 Type 2 diabetes mellitus with hyperglycemia; R45.851 Suicidal ideations; D64.9 Anemia, unspecified; F17.210 Nicotine dependence, cigarettes, uncomplicated; F41.9 Anxiety disorder, unspecified; G47.00 Insomnia, unspecified; Z59.0 Homelessness; Z79.899 Other long term (current) drug therapy; Z90.49 Acquired absence of other specified parts of digestive tract; Z91.013 Allergy to seafood; R40.2412 Glasgow coma scale score 13-15, at arrival to emergency department; Z88.8 Allergy status to other drugs, medicaments and biological substances; Z91.14 Patient's other noncompliance with medication regimen

== ENCOUNTER 2018-02-20 12:13 | Emergency (ER) | payer MEDICAID, MEDICARE, OTHER ==
[2018-02-20 12:14] VITALS: BMI 33.7
--- NOTE | 2018-02-20 12:27 | ED PDOC ---
Arrival/HPI - General Chief Complaint: Psychiatric Evaluation Time Seen by Provider: 02/20/18 12:18 Historian: Patient, EMS, Police - History of Present Illness Time/Duration: Prior to Arrival Symptom Course: Unchanged Severity Level: Severe Associated Symptoms (Text): 02/20/18 12:24 Patient reports that he is homeless. He is depressed and suicidal, though he has no plan. He reports that he has no medications since his last admission several months ago. He was seen at another hospital emergency department yesterday and had a crisis evaluation and was discharged home. Outpatient mental health services appointment was made for him for February 24. He states that he was wandering the streets and went up to the police and told him that he was depressed and suicidal and they called 911 for him and he was brought to the emergency department via ambulance. Multiple previous crisis evaluations and admissions. Past Medical History - Infectious Disease Hx of Infectious Diseases: None - Tetanus Immunization Tetanus Immunization: Unknown - Cardiac Hx Cardiac Disorders: No Hx Hypertension: No - Pulmonary Hx Tuberculosis: No - Neurological HX Cerebrovascular Accident: No Hx Seizures: No - HEENT Hx HEENT Disorder: No - Renal Hx Renal Disorder: No - Endocrine/Metabolic Hx Endocrine Disorders: Yes (DM) Hx Diabetes Mellitus Type 2: Yes - Hematological/Oncological Hx Cancer: No - Integumentary Hx Dermatological Disorder: No - Musculoskeletal/Rheumatological Hx Arthritis: No Hx Fractures: No Hx Osteoporosis: No - Gastrointestinal Hx Crohn's Disease: No Hx Diverticulitis: No Hx Gall Bladder Disease: No Hx Pancreatitis: No - Genitourinary/Gynecological Hx Sexually Transmitted Diseases: No - Psychiatric Hx Anxiety: Yes Hx Bipolar Disorder: Yes Hx Depression: Yes Hx Schizophrenia: Yes Hx Substance Use: No - Past Surgical History Past Surgical History: No Previous - Surgical History Hx Appendectomy: Yes Hx Cholecystectomy: No Hx Coronary Stent: No - Anesthesia Hx Anesthesia: Yes Hx Anesthesia Reactions: No Hx Malignant Hyperthermia: No - Suicidal Assessment Feels Threatened In Home Enviroment: No Family/Social History - Physician Review Nursing Documentation Reviewed: Yes Family/Social History: Unknown Family HX Smoking Status: Heavy Smoker > 10 Cigarettes Daily Hx Alcohol Use: Yes (1-2 etoh in a week) Hx Substance Use: No Hx Substance Use Treatment: No Allergies/Home Meds Allergies/Adverse Reactions: Allergies divalproex sodium [From Depakote] Allergy (Verified 02/20/18 12:23) RASH seafood Allergy (Uncoded 02/20/18 12:23) RASH Home Medications: Home Meds Medication Instructions Recorded Confirmed Unobtainable 02/20/18 02/20/18 Review of Systems - Physician Review All systems were reviewed & negative as marked: Yes - Review of Systems Respiratory: Normal Cardiovascular: Normal Gastrointestinal: Normal Physical Exam Vital Signs Temp Pulse Resp BP Pulse Ox 02/20/18 12:40 98.1 F 90 18 147/89 99 Temperature: Afebrile Blood Pressure: Normal Pulse: Regular Respiratory Rate: Normal Appearance: Positive for: Well-Appearing, Non-Toxic, Comfortable Pain Distress: None Mental Status: Positive for: Alert and Oriented X 3 - Systems Exam Head: Present: Atraumatic, Normocephalic Pupils: Present: PERRL Extroacular Muscles: Present: EOMI Conjunctiva: Present: Normal Mouth: Present: Moist Mucous Membranes Neck: Present: Normal Range of Motion Respiratory/Chest: Present: Clear to Auscultation, Good Air Exchange, Decreased Breath Sounds. No: Respiratory Distress, Accessory Muscle Use Cardiovascular: Present: Regular Rate and Rhythm, Normal S1, S2. No: Murmurs Abdomen: No: Tenderness, Distention, Peritoneal Signs Upper Extremity: Present: Normal Inspection. No: Cyanosis, Edema Lower Extremity: Present: Normal Inspection. No: Edema Neurological: Present: GCS=15, CN II-XII Intact, Speech Normal, Motor Func Grossly Intact Skin: Present: Warm, Dry, Normal Color. No: Rashes Psychiatric: Present: Alert, Oriented x 3, Normal Insight, Normal Concentration , Depressed Mood, Suicidal Ideation (Patient may be manipulative and trying to manipulate the system.) Medical Decision Making ED Course and Treatment: 02/20/18 12:47 EKG shows normal sinus rhythm rate approximately [address] or T-wave changes 02/20/18 15:14 Seen and evaluated by crisis who will discharge home. Patient is to keep his already scheduled outpatient mental health visit on February 24. - Lab Interpretations Lab Results: 02/20/18 13:00 02/20/18 13:00 Lab Results 02/20/18 13:00: Alcohol, Quantitative < 10 02/20/18 13:00: Salicylates < 1 L, Acetaminophen < 10.0 L 02/20/18 13:00: Urine Opiates Screen Negative, Urine Methadone Screen Negative, Ur Barbiturates Screen Negative, Ur Phencyclidine Scrn Negative, Ur Amphetamines Screen Negative, U Benzodiazepines Scrn Negative, U Oth Cocaine Metabols Negative, U Cannabinoids Screen Negative 02/20/18 13:00: Sodium 136, Potassium 4.0, Chloride 101, Carbon Dioxide 24, Anion Gap 14, BUN 11, Creatinine 0.8, Est GFR ( Amer) > 60, Est GFR (Non- Af Amer) > 60, Random Glucose 402 H* D, Calcium 9.4, Total Bilirubin < 0.1 L, AST 21, ALT 35, Alkaline Phosphatase 106, Total Creatine Kinase 472 H, CK-MB (CK -2) 2.5, CK-MB (CK-2) % Cancelled, Total Protein 7.1, Albumin 4.1, Globulin 3.1 , Albumin/Globulin Ratio 1.3 02/20/18 13:00: Urine Color Yellow, Urine Appearance Clear, Urine pH 6.0, Ur Specific Post 1.010, Urine Protein Negative, Urine Glucose (UA) >=1000, Urine Ketones Negative, Urine Blood Negative, Urine Nitrate Negative, Urine Bilirubin Negative, Urine Urobilinogen 0.2, Ur Leukocyte Esterase Negative 02/20/18 13:00: WBC 6.7, RBC 4.82, Hgb 14.5, Hct 40.4 L, MCV 83.8, MCH 30.1, MCHC 35.9, RDW 12.9, Plt Count 249, MPV 10.7, Gran % 54.2, Lymph % (Auto) 38.1 H , [place] % (Auto) 5.5, Eos % (Auto) 2.1, Baso % (Auto) 0.1, Gran # 3.64, Lymph # ( Auto) 2.6, [place] # (Auto) 0.4, Eos # (Auto) 0.1, Baso # (Auto) 0.01 - RAD Interpretation Radiology Orders: 02/20/18 12:23 CHEST PORTABLE [RAD] Stat - Medication Orders Current Medication Orders: Discontinued Medications Insulin Human Regular (Humulin R) 30 units SC ONCE STA Stop: 02/20/18 13:57 Last Admin: 02/20/18 14:03 Dose: 30 units MAR Blood Glucose Document 02/20/18 14:03 [facility] (Rec: 02/20/18 14:03 [facility] [id number]) Blood Glucose Finger Stick Blood Glucose (70-120) 472 Subcutaneous Administrations Document 02/20/18 14:03 [facility] (Rec: 02/20/18 14:03 [facility] [id number]) Injection Site MAR Injection Site Left Arm Charges for Administration # of Subcutaneous Administrations 1 Disposition/Present on Arrival - Present on Arrival Any Indicators Present on Arrival: No History of DVT/PE: No History of Uncontrolled Diabetes: No Urinary Catheter: No History of Decub. Ulcer: No History Surgical Site Infection Following: None - Disposition Have Diagnosis and Disposition been Completed?: Yes Diagnosis: Hyperglycemia, Suicidal ideation, Depression, DM2 (diabetes mellitus, type 2), Schizophrenia Disposition: HOME/ ROUTINE Disposition Time: 15:15 Patient Plan: Discharge Condition: STABLE Discharge Instructions (ExitCare): Type 2 Diabetes, Depression, Schizophrenia, Hyperglycemia, Adult Forms: [facility] ([place])
[2018-02-20 13:12] LABS: BASO # 0.01 K/mm3 (0.0-2.0); BASO % 0.1 % (0.0-3.0); EOS # 0.1 (0.0-0.7); EOS % 2.1 % (1.5-5.0); GRAN # 3.64 (1.4-6.5); GRAN % 54.2 % (50.0-68.0); HEMOGLOBIN 14.5 g/dL (14.0-18.0); LYMPH # 2.6 (1.2-3.4); LYMPH % 38.1 % (22.0-35.0); MEAN CELL VOLUME 83.8 fl (80.0-105.0); MEAN CORPUSCULAR HEMOGLOBIN 30.1 pg (25.0-35.0); MEAN CORPUSCULAR HGB CONC 35.9 g/dl (31.0-37.0); MEAN PLATELET VOLUME 10.7 fl (7.0-11.0); MONO # 0.4 (0.1-0.6); MONO % 5.5 % (1.0-6.0); RBC 4.82 10^6/uL (3.5-6.1); RED CELL DISTRIBUTION WIDTH 12.9 % (11.5-14.5); WHITE BLOOD COUNT 6.7 10^3/ul (4.5-11.0)
[2018-02-20 13:15] LABS: URINE APPEARANCE CLEAR (CLEAR); URINE BILIRUBIN NEGATIVE (NEGATIVE); URINE BLOOD NEGATIVE (NEGATIVE); URINE COLOR YELLOW (YELLOW); URINE GLUCOSE (UA) >=1000 mg/dL (NEGATIVE); URINE LEUKOCYTE ESTERASE NEGATIVE Leu/uL (NEGATIVE); URINE PROTEIN NEGATIVE mg/dL (<30 mg/dL); URINE UROBILINOGEN 0.2 E.U./dL (<1 E.U./dL)
[2018-02-20 13:22] VITALS: RESP 18; TEMP 98.1
[2018-02-20 13:40] LABS: ACETAMINOPHEN < 10.0 ug/ml (10.0-20.0); SALICYLATE < 1 mg/dL (2.0-20.0)
[2018-02-20 13:53] LABS: ALB/GLOB RATIO 1.3 (1.1-1.8); ALBUMIN 4.1 g/dL (3.0-4.8); ALT/SGPT 35 U/L (7-56); AST/SGOT 21 U/L (17-59); BARBITURATES, UR NEGATIVE (NEGATIVE); BENZODIAZEPINES, UR NEGATIVE (NEGATIVE); BLOOD UREA NITROGEN 11 mg/dL (7-21); CALCIUM 9.4 mg/dL (8.4-10.5); GFR AFRICAN-AMERICAN > 60; GFR NON-AFRICAN AMERICAN > 60; OPIATES, UR NEGATIVE (NEGATIVE); PHENCYCLIDINE, UR NEGATIVE (NEGATIVE)
[2018-02-20] MEDS ORDERED: Insulin Regular 1 UNITS/0.01 ML ML SC STA (13:56)
[2018-02-20 14:02] LABS: CK-MB 2.5 ng/mL (0.0-3.6)
[2018-02-20 15:27] VITALS: BP 116/67; PULSE 85; O2SAT 97
--- NOTE | 2018-02-21 00:34 | CARD ---
APPROVED REPORT EKG Measurement Heart [id number] <Conclusion> Normal sinus rhythm Nonspecific ST and T wave abnormality Abnormal ECG
--- NOTE | 2018-02-21 19:54 | RAD ---
HISTORY: crisis COMPARISON: 12/31/2017 FINDINGS: LUNGS: No active pulmonary disease. PLEURA: No significant pleural effusion identified, no pneumothorax apparent. CARDIOVASCULAR: Normal. OSSEOUS STRUCTURES: No significant abnormalities. VISUALIZED UPPER ABDOMEN: Normal. OTHER FINDINGS: None. IMPRESSION: No active disease.
== END 2018-02-20 15:47 | disposition home or self-care (01) ==
LOC: ED 12:13
DX: E11.65 Type 2 diabetes mellitus with hyperglycemia (principal); F20.9 Schizophrenia, unspecified; F32.9 Major depressive disorder, single episode, unspecified; R45.851 Suicidal ideations
CPT/HCPCS: 71045; 80053; 81003; 82550; 82553; 82948; 85025; 90791; 93005; 96372; 99283; G0480